=== PATIENT | male | born 1950 | race Caucasian/White ===

== ENCOUNTER 2021-12-26 10:52 | Emergency (ER) | payer MEDICARE ==
[2021-12-26] MEDS ORDERED: IBUPROFEN600 MG PO (12:58)
[2021-12-26] MEDS ORDERED: CYCLOBENZAPRINE10 MG PO (12:58)
== END 2021-12-26 13:10 | disposition home or self-care (01) ==
LOC: ER1 10:52
DX: S49.91XA Unspecified injury of right shoulder and upper arm, initial encounter (principal); F17.210 Nicotine dependence, cigarettes, uncomplicated; E11.9 Type 2 diabetes mellitus without complications; J44.9 Chronic obstructive pulmonary disease, unspecified; E07.9 Disorder of thyroid, unspecified; W19.XXXA Unspecified fall, initial encounter; Y92.009 Unspecified place in unspecified non-institutional (private) residence as the place of occurrence of the external cause
CPT/HCPCS: 72125; 73030; 96372; 99284; J1885